=== PATIENT | male | born 1965 | race Caucasian/White ===

== ENCOUNTER 2019-11-23 12:04 | Emergency (ER) | payer MEDICAID, SELFPAY ==
--- NOTE | 2019-11-23 11:57 | ECG_ITS ---
APPROVED REPORT Exam: Resting ECG HR:81 bpm ECG Measurements Heart Rate 81 AXES QRSd 88 QRS -7 QT 380 T 11 QTc 441 <Conclusion> Demand pacemaker, interpretation is based on intrinsic rhythm Undetermined rhythm Otherwise normal ECG Electronically signed by : Maco Finch, 11/25/2019 21:01:03
[2019-11-23 12:05] VITALS: BP 143/101; PULSE 86; RESP 20; TEMP 36.7; O2SAT 98; BMI 27.3
--- NOTE | 2019-11-23 12:09 | XR_ITS ---
PROCEDURE: XR CHEST 2V CLINICAL HISTORY: cp Chest pain and pressure COMPARISON: No exams were available for comparison FINDINGS: The cardiomediastinal silhouette and pulmonary vascularity are within normal limits. The lungs are clear without infiltrates, suspicious nodules, or pleural effusions. No acute bony abnormalities. IMPRESSION: No acute findings. Dictated by: Tobi Bryan MD 11/23/2019 12:47 Electronically signed by Tobi Bryan MD in [place] 11/23/2019 12:47
--- NOTE | 2019-11-23 12:11 | [facility].EDCP ---
ED Disposition Clinical Impression: Chest pain Disposition: Home, Self-Care Condition on Discharge: Good Additional Instructions: These follow-up with your primary care physician and get a treadmill stress test done with an echocardiogram. - Critical Care Critical Care Time: No Attestation: On , the high probability of a clinically significant, sudden or life threatening deterioration of the following system(s) required my full and direct attention, intervention and personal management. The time I documented below is in addition to time spent performing reported procedures but includes the following listed in this critical care notation. Medical Decision Making - Medical Records Medical records reviewed: Yes: I reviewed the patient's medical records. - Kirk Inquiry Pt receiving controlled substance: No Vital Signs: 11/23/19 12:05 Temperature 98.1 F Temperature Source Oral Pulse Rate [Right] 86 Respiratory Rate 20 Blood Pressure [Right Arm] 143/101 H Blood Pressure Mean [Right Arm] 115 02 Sat by Pulse Oximetry 98 - Lab Data Lab results reviewed: Yes: I reviewed the patient's lab results. Lab Results 11/23/19 12:00: WBC 6.6, RBC 5.62, Hgb 17.3, Hct 49.3, MCV 87.8, MCH 30.7, MCHC 35.0, RDW 12.1, Plt Count 254, MPV 7.8, Neut % (Auto) 56.7, Lymph % (Auto) 34.2, [place] % (Auto) 5.9, Eos % (Auto) 2.1, Baso % (Auto) 1.0, Neut # (Auto) 3.8, Lymph # (Auto) 2.3, Waldo # (Auto) 0.4, Eos # (Auto) 0.1, Baso # (Auto) 0.1 11/23/19 12:00: Sodium 138, Potassium 3.8, Chloride 101, Carbon Dioxide 26, Anion Gap 14.8, BUN 15, Creatinine 0.90, Estimated Creat Clear 113, Estimated GFR 88, Est GFR ( Amer) 107, Glucose 89, Calcium 9.8, Troponin I < 0.01 Result diagrams: 11/23/19 12:00 11/23/19 12:00 Orders (Tests/Meds): ED MEDICATIONS Discontinued Medications Generic Name Dose Route Start Last Admin Trade Name Freq PRN Reason Stop Dose Admin Aspirin 324 mg 11/23/19 12:10 11/23/19 13:09 Aspirin 81mg Chewable Tablet PO 11/23/19 12:11 324 mg ONCE ONE Administration Ketorolac Tromethamine 30 mg 11/23/19 13:54 11/23/19 13:55 Toradol 30mg/Ml Vial IV 11/23/19 13:55 30 mg ONCE ONE Administration Nitroglycerin 1 gm 11/23/19 12:10 11/23/19 13:09 Nitroglycerin 1 Inch Oint Udp TD 11/23/19 12:11 1 gm ONCE ONE Administration ORDERS Category Date Time Status Troponin I Q3H Lab 11/23/19 14:54 Ordered Troponin I Q3H Lab 11/23/19 14:54 Received - Radiology Data #1 Image(s): Chest Preliminary Findings: Normal/NAD - ECG Data Tracing #1 I reviewed this ECG and interpreted as documented below: Normal Sinus Rhythm: Yes Medical Decision Narrative: Patient second troponin drawn here was was normal. I advised patient that he needs to follow-up with his primary care physician and get an exercise treadmill stress test done. And also an echocardiogram. Chest Pain HPI - General Chief Complaint: Chest Pain Stated Complaint: chest pain Time Seen by Provider: 11/23/19 12:11 Mode of Arrival: Ambulatory Source of Information: Patient Limitations: No Limitations Description of Symptoms (Recalled from ER Triage Doc. by RN): Pt states for 2 months he has had this pressure/pain like feeling that comes and goes but when he takes a deep breath. Denies fever, cough, soa or travel hx. - History of Present Illness HPI narrative: 54-year-old male presents with chest pain. He states the pain started yesterday he felt a squeezing pressure sensation on the left side of his chest with no radiation yesterday that lasted for a few minutes then the pain came back today and is persist for about the last 35 to 40 minutes until he presented here in the emergency department. He rates his pain presently 5 out of 10. He states that exacerbating factors are increasing intrathoracic pressure and alleviating factors include rest. Patient denies any radiation. Patient also denies any shortn
[2019-11-23 12:25] LABS: Basophils # 0.1 K/mm3 (0-0.2); Eosinophils # 0.1 K/mm3 (0.0-0.4); Eosinophils % 2.1 % (0.1-12.0); Hematocrit 49.3 % (42.0-52.0); Hemoglobin 17.3 g/dL (14.1-18.0); Lymphocytes # 2.3 K/mm3 (0.7-4.5); Lymphocytes % 34.2 % (10-50); Mean Corpuscular Hemoglobin 30.7 pg (27.0-31.2); Mean Corpuscular Volume 87.8 fl (80-94); Mean Platelet Volume 7.8 fl (7.4-10.4); Monocytes # 0.4 K/mm3 (0.1-1.0); Monocytes % 5.9 % (1.7-9.3); Neutrophils # 3.8 K/mm3 (1.8-7.8); Neutrophils % 56.7 % (37.0-80.0); Platelet Count 254 K/mm3 (142-424); Red Blood Count 5.62 M/mm3 (4.60-6.20); Red Cell Distribution Width 12.1 % (11.5-17.5); White Blood Count 6.6 K/mm3 (4.8-10.8)
[2019-11-23 12:27] LABS: Chloride 101 mmol/L (98-107); Potassium 3.8 mmoL/L (3.5-5.1); Sodium 138 mmol/L (136-145)
[2019-11-23 12:30] LABS: Blood Urea Nitrogen 15 mg/dl (9-20); Creatinine Clearance Estimated 113 mL/min (50-200); Estimated Glomerular Filt Rate 88 ml/min (>60); GFR (African American) 107 ML/MIN (>60)
[2019-11-23 12:31] LABS: Anion Gap 14.8 mEq/L (5-15); Calcium 9.8 mg/dl (8.4-10.2); Carbon Dioxide 26 mmol/L (22.0-30.0); Glucose 89 mg/dl (74-100)
[2019-11-23 12:45] LABS: Troponin I < 0.01 ng/ml (0.00-0.034)
--- NOTE | 2019-11-23 14:46 | PC.NURSE ---
LAB AT [facility] AT THIS TIME TO DRAW 2ND TROPONIN
[2019-11-23 15:43] LABS: Troponin I < 0.01 ng/ml (0.00-0.034)
[2019-11-23 16:02] VITALS: BP 120/80; PULSE 85; RESP 20; TEMP 36.8; O2SAT 98
== END 2019-11-23 16:51 | disposition home or self-care (01) ==
LOC: ER 16:16
PROVIDERS: Emergency Provider Family Medicine; PCP Family Medicine
DX: R07.9 Chest pain, unspecified (principal); E78.5 Hyperlipidemia, unspecified
CPT/HCPCS: 36415; 71046; 80048; 84484; 85025; 93005; 96374; 96375; 99283